=== PATIENT | female | born 1995 ===

== ENCOUNTER 2016-11-24 21:45 | Emergency (ER) | payer MEDICAID ==
[2016-11-24 22:09] VITALS: BP 113/63; PULSE 86; RESP 17; TEMP 98.3; O2SAT 100
--- NOTE | 2016-11-24 22:21 | ED PDOC ---
HPI: CCC, URI, Sore Throat Time Seen by Provider: 11/24/16 22:16 Chief Complaint (Nursing): ENT Problem Chief Complaint (Provider): cough/body aches History Per: Patient History/Exam Limitations: no limitations Have you had recent travel within the past 21 days to any of the following countries: [place], [place], [place] or [place]?: No Onset/Duration Of Symptoms: Days (3) Current Symptoms Are (Timing): Still Present Location Of Pain: Ear(s), Throat, Headache Associated Symptoms: Fever, Chills, Sore Throat, Myalgias. denies: Cough, Sputum, Neck Pain, Sinus Drainage, Nasal Congestion, Nausea, Vomiting, Diarrhea Past Medical History Reviewed: Historical Data, Nursing Documentation, Vital Signs Vital Signs: Last Vital Signs Temp 98.3 F 11/24/16 22:06 Pulse 86 11/24/16 22:06 Resp 17 11/24/16 22:06 BP 113/63 11/24/16 22:06 Pulse Ox 100 11/24/16 22:21 - Medical History PMH: No Chronic Diseases - Family History Family History: States: Unknown Family Hx - Home Medications Home Medications: Ambulatory Orders Medication Instructions Recorded Acetaminophen/Butalbital/Caf 1 tab PO TID #6 tab 10/23/16 [Fioricet] Metoclopramide [Reglan] 10 mg PO Q8 #7 tab 10/23/16 Guaifenesin [Mucinex] 600 mg PO BID #14 tab.er.12h 11/24/16 Ibuprofen [Motrin] 400 mg PO Q6 #30 tab 11/24/16 - Allergies Allergies/Adverse Reactions: Allergies Allergy/AdvReac Type Severity Reaction Status Date / Time No Known Allergies Allergy Verified 11/24/16 22:08 Curb-65 Severity Score - CURB-65 Severity Score Confusion: No Bun >19mg/dl (>7mmol/L): No Respiratory Rate greater than/equal to 30: No Systolic BP <90 or Diastolic BP less than/equal 60mmHg: No Age >64: No Curb-65 Score: 0 Percentage 30-day mortality: 0.6% Review of Systems ROS Statement: Except As Marked, All Systems Reviewed And Found Negative Constitutional: Positive for: Fever, Chills, Malaise ENT: Positive for: Throat Pain, Throat Swelling Respiratory: Negative for: Cough Physical Exam - Reviewed Nursing Documentation Reviewed: Yes Vital Signs Reviewed: Yes - Physical Exam Appears: Positive for: Non-toxic, No Acute Distress, Uncomfortable Head Exam: Positive for: ATRAUMATIC, NORMAL INSPECTION, NORMOCEPHALIC Skin: Positive for: Normal Color, Warm, DRY Eye Exam: Positive for: EOMI, Normal appearance, PERRL ENT: Positive for: Pharynx Is (red), TM Is/Are (NAD), Pharyngeal Erythema, Tonsillar Swelling. Negative for: Sinus Pain/Drainage, Tonsillar Exudate Neck: Positive for: Normal, Painless ROM Cardiovascular/Chest: Positive for: Regular Rate, Rhythm Respiratory: Positive for: CNT, Normal Breath Sounds Gastrointestinal/Abdominal: Positive for: Normal Exam, Bowel Sounds, Soft. Negative for: Tenderness Neurologic/Psych: Positive for: Alert, Oriented - ECG O2 Sat by Pulse Oximetry: 100 - Progress ED Course And Treament: rapid strep/influ A testing. Medical Decision Making Medical Decision Making: Pt with negative flu and strep pt most likely with viral syndrome-will be Rx mucinex, advised to take motrin/ tyelnol and to have plenty of fluid and rest. Disposition - Clinical Impression Clinical Impression: Upper respiratory infection - Patient ED Disposition Is Patient to be Admitted: No Counseled Patient/Family Regarding: Studies Performed, Diagnosis, Need For Followup, Rx Given - Disposition Disposition: Routine/Home Disposition Time: 23:38 Condition: STABLE Prescriptions: Ibuprofen [Motrin] 400 mg PO Q6 #30 tab Guaifenesin [Mucinex] 600 mg PO BID #14 tab.er.12h Instructions: Upper Respiratory Infection (ED), Viral Syndrome (ED) Forms: [facility] ED School/Work Excuse Print Language: QATARI
== END 2016-11-25 00:19 | disposition home or self-care (01) ==
LOC: H.ER 21:45
DX: J06.9 Acute upper respiratory infection, unspecified (principal); J02.9 Acute pharyngitis, unspecified; R51 Headache

== ENCOUNTER 2017-11-18 16:08 | Emergency (ER) | payer MEDICAID ==
[2017-11-18 16:24] VITALS: BP 110/70; PULSE 72; RESP 18; TEMP 98.4; O2SAT 100
[2017-11-18 17:21] LABS: BASO # 0.1 K/uL (0.0-0.2); EOS # 0.1 K/uL (0.0-0.7); EOS % 0.9 % (0.0-4.0); HEMOGLOBIN 14.6 g/dL (12.0-16.0); LYMPH # 1.9 K/uL (1.0-4.3); LYMPH % 21.9 % (20.0-40.0); MEAN CELL VOLUME 89.9 fl (81.0-99.0); MEAN CORPUSCULAR HEMOGLOBIN 30.3 pg (27.0-31.0); MEAN CORPUSCULAR HGB CONC 33.7 g/dL (33.0-37.0); MEAN PLATELET VOLUME 9.4 fl (7.2-11.7); MONO # 0.7 K/uL (0.0-0.8); MONO % 8.5 % (0.0-10.0); NEUT # 5.9 K/uL (1.8-7.0); NEUT % 67.7 % (50.0-75.0); RBC 4.83 Mil/uL (3.80-5.20); RED CELL DISTRIBUTION WIDTH 13.2 % (11.5-14.5); WHITE BLOOD COUNT 8.7 K/uL (4.8-10.8)
[2017-11-18 17:29] LABS: SQUAMOUS EPITHIAL 2 /hpf (0-5); URINE BILIRUBIN NEGATIVE (NEGATIVE); URINE BLOOD SMALL (NEGATIVE); URINE CLARITY CLEAR (Clear); URINE COLOR YELLOW (YELLOW); URINE GLUCOSE (UA) NEG (Normal); URINE LEUKOCYTE ESTERASE NEG Leu/uL (Negative); URINE PROTEIN NEGATIVE (NEGATIVE); URINE UROBILINOGEN 0.2-1.0 mg/dL (0.2-1.0)
--- NOTE | 2017-11-18 17:50 | ED PDOC ---
HPI: Female Pain Time Seen by Provider: 11/18/17 16:36 Chief Complaint (Nursing): Female Genitourinary History Per: Patient History/Exam Limitations: no limitations Onset/Duration Of Symptoms: Days (1) Additional Complaint(s): 22 yo F states that her menses started this AM and is c/o suprapubic pain with dysuria. Otherwise: (-) nausea / vomiting, (-) diarrhea, (-) fever, (-) melena, (-) hematochezia. Has no history of prior abdominal surgery. Past Medical History Vital Signs: Last Vital Signs Temp 98.4 F 11/18/17 16:20 Pulse 72 11/18/17 16:20 Resp 18 11/18/17 16:20 BP 110/70 11/18/17 16:20 Pulse Ox 100 11/18/17 16:20 - Medical History PMH: No Chronic Diseases - Surgical History Surgical History: No Surg Hx - Family History Family History: States: Unknown Family Hx - Home Medications Home Medications: Ambulatory Orders Medication Instructions Recorded Acetaminophen/Butalbital/Caf 1 tab PO TID #6 tab 10/23/16 [Fioricet] Metoclopramide [Reglan] 10 mg PO Q8 #7 tab 10/23/16 Guaifenesin [Mucinex] 600 mg PO BID #14 tab.er.12h 11/24/16 Ibuprofen [Motrin] 400 mg PO Q6 #30 tab 11/24/16 Naproxen 500 mg PO BID PRN #20 tablet 11/18/17 - Allergies Allergies/Adverse Reactions: Allergies Allergy/AdvReac Type Severity Reaction Status Date / Time No Known Allergies Allergy Verified 11/24/16 22:08 Review of Systems Constitutional: Negative for: Fever, Chills, Malaise Cardiovascular: Negative for: Chest Pain, Palpitations Respiratory: Negative for: Cough, Shortness of Breath Gastrointestinal: Positive for: Abdominal Pain. Negative for: Nausea, Vomiting Genitourinary Female: Positive for: Dysuria. Negative for: Frequency, Incontinence Musculoskeletal: Negative for: Neck Pain, Back Pain Skin: Negative for: Rash Physical Exam - Physical Exam Comments: GENERALIZED APPEARANCE: Patient is awake, alert, oriented x3 in no acute distress. SKIN: Warm, dry; (-) cyanosis. EYES: (-) conjunctival pallor, (-) scleral icterus. ENMT: Mucous membranes moist. NECK: (-) tenderness, (-) stiffness, (-) lymphadenopathy. CHEST AND RESPIRATORY: (-) rales, (-) rhonchi, (-) wheezes; breath sounds equal bilaterally. HEART AND CARDIOVASCULAR: (-) irregularity; (-) murmur, (-) gallop. ABDOMEN AND GI: (-) distention. Bowel sounds active; (+) mild suprapubic tenderness, (-) guarding, (-) rebound, (-) palpable masses, (-) CVA tenderness. GENITOURINARY: (-) testicular tenderness EXTREMITIES: (-) deformity, (-) edema, (+) distal pulses. NEURO AND PSYCH: Mental status as above; (-) focal findings. - Laboratory Results Result Diagrams: 11/18/17 17:14 11/18/17 17:14 - ECG O2 Sat by Pulse Oximetry: 100 Medical Decision Making Medical Decision Making: Impression : dysmenorrhea, r/o UTI Plan : -Labs -IV -toradol IV -UA -Uhcg Uhcg (-). Lab results reviewed : UA +blood, but no evidence of infection, rest of the labs are wnl. On re-evaluation, patient reports improvement of symptoms, denies any pain or nausea. On exam, patient remains AAOx3, in no acute distress. Abdomen soft, non- tender. Diagnostic results d/w the patient in great detail. Diagnosis of dysmenorrhea d/ w the patient. Based on history, exam and diagnostic results, plan will be for outpatient follow up. Patient instructed to follow-up with pmd or the clinic in 1-2 days without fail. Advised to take medication as prescribed. Return to the emergency room at any time for any new or worsening symptoms. Patient states she fully agrees with and understands discharge instructions. States that she agrees with the plan and disposition. Verbalized and repeated discharge instructions and plan. I have given the patient opportunity to ask any additional questions. Disposition - Clinical Impression Clinical Impression: Dysmenorrhea - Patient ED Disposition Is Patient to be Admitted: No Counseled Patient/Family Regarding: Studies Performed, Diagnosis, Need For Followup, Rx Given - Disposition Disposition: Routine/Home Disposition Time: 18:30 Condition: GOOD Additional Instructions: Thank you for letting us take care of you today. You were treated for dysmenorrhea. The emergency medical care you received today was directed at your acute symptoms. If you were prescribed any medication, please fill it and take as directed. It may take several days for your symptoms to resolve. Return to the Emergency Department if your symptoms worsen, do not improve, or if you have any other problems. Please contact your doctor in 2 days for re-evaluation and follow up. Bring any paperwork you were given at discharge with you along with any medications you are taking to your follow up visit. Our treatment cannot replace ongoing medical care by a primary care provider (PCP) outside of the emergency department. Thank you for allowing the [facility] team to be part of your care today. 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
[2017-11-18 17:55] LABS: ALB/GLOB RATIO 1.2 (1.0-2.1); ALT/SGPT 26 U/L (9-52); AST/SGOT 46 U/L (14-36); BLOOD UREA NITROGEN 12 mg/dl (7-17); CALCIUM 9.2 mg/dL (8.4-10.2); GFR AFRICAN-AMERICAN > 60; GFR NON-AFRICAN AMERICAN > 60
== END 2017-11-18 19:04 | disposition home or self-care (01) ==
LOC: H.ER 16:08
DX: N94.6 Dysmenorrhea, unspecified (principal)
CPT/HCPCS: 80053; 81003; 81025; 85025; 87086; 96374; 99284; J1885

== ENCOUNTER 2018-10-08 09:31 | Emergency (ER) | payer MEDICAID, OTHER ==
[2018-10-08 09:46] VITALS: BP 107/51; PULSE 71; RESP 16; TEMP 97; O2SAT 99
--- NOTE | 2018-10-08 10:29 | ED PDOC ---
Lower Extremity Pain/Injury Time Seen by Provider: 10/08/18 09:48 Chief Complaint (Nursing): Lower Extremity Problem/Injury Chief Complaint (Provider): Right foot pain History Per: Patient History/Exam Limitations: no limitations Onset/Duration Of Symptoms: Days (3) Current Symptoms Are (Timing): Still Present Additional Complaint(s): 23 year old female presents to the ED for an evaluation of right foot pain onset for 3 days which occurred after work. Patient denies any fever, injury or trauma. PMD: non [facility] Provider Past Medical History Reviewed: Historical Data, Nursing Documentation, Vital Signs Vital Signs: Last Vital Signs Temp 97.0 F L 10/08/18 09:44 Pulse 71 10/08/18 09:44 Resp 16 10/08/18 09:44 BP 107/51 L 10/08/18 09:44 Pulse Ox 99 10/08/18 09:44 - Medical History PMH: No Chronic Diseases - Family History Family History: States: Unknown Family Hx - Social History Current smoker - smoking cessation education provided: No Alcohol: None Drugs: Denies - Home Medications Home Medications: Ambulatory Orders Medication Instructions Recorded Acetaminophen/Butalbital/Caf 1 tab PO TID #6 tab 10/23/16 [Fioricet] Metoclopramide [Reglan] 10 mg PO Q8 #7 tab 10/23/16 Guaifenesin [Mucinex] 600 mg PO BID #14 tab.er.12h 11/24/16 Ibuprofen [Motrin] 400 mg PO Q6 #30 tab 11/24/16 Naproxen 500 mg PO BID PRN #20 tablet 11/18/17 Naproxen [Naprosyn] 500 mg PO Q12H #20 tab 10/08/18 - Allergies Allergies/Adverse Reactions: Allergies Allergy/AdvReac Type Severity Reaction Status Date / Time No Known Allergies Allergy Verified 10/08/18 09:49 Review of Systems ROS Statement: Except As Marked, All Systems Reviewed And Found Negative Constitutional: Negative for: Fever Musculoskeletal: Positive for: Foot Pain (right) Neurological: Negative for: Weakness, Numbness Physical Exam - Reviewed Nursing Documentation Reviewed: Yes Vital Signs Reviewed: Yes - Physical Exam Appears: Positive for: Non-toxic, No Acute Distress Head Exam: Positive for: ATRAUMATIC, NORMAL INSPECTION, NORMOCEPHALIC Skin: Positive for: Normal Color, Warm, Dry. Negative for: Rash Extremity: Positive for: Tenderness (over distal, 2nd, 3rd and 4th MTP dorsally, DP and PT: 2/4), Other (no erythema). Negative for: Deformity, Swelling Neurologic/Psych: Positive for: Alert, Oriented (x3). Negative for: Motor/Sensory Deficits - ECG O2 Sat by Pulse Oximetry: 99 (RA) Pulse Ox Interpretation: Normal Medical Decision Making Medical Decision Making: Time: 950 Impression: pain of right foot r/o sprain Plan: --foot right 3 views routine [RAD] --Reevaluation Scribe Attestation: Documented by Anthony Apple, acting as a scribe for Stefan Smart MD. Provider Scribe Attestation: All medical record entries made by the Scribe were at my direction and personally dictated by me. I have reviewed the chart and agree that the record accurately reflects my personal performance of the history, physical exam, medical decision making, and the department course for this patient. I have also personally directed, reviewed, and agree with the discharge instructions and disposition. Disposition - Clinical Impression Clinical Impression: Foot sprain - Patient ED Disposition Is Patient to be Admitted: No Counseled Patient/Family Regarding: Studies Performed, Diagnosis, Need For Followup, Rx Given - Disposition Referrals: Podiatry Clinic [Outside] Disposition: Routine/Home Disposition Time: 10:56 Condition: FAIR Prescriptions: Naproxen [Naprosyn] 500 mg PO Q12H #20 tab Instructions: Foot Sprain (DC) Forms: [employer] (Arabic) Print Language: PORTUGUESE
--- NOTE | 2018-10-08 14:19 | RAD ---
Date of service: 10/08/2018 PROCEDURE: Right Foot Radiographs. HISTORY: Pain COMPARISON: None. FINDINGS: BONES: No acute fracture or destructive bony lesion identified. JOINTS: Normal. SOFT TISSUES: Normal. OTHER FINDINGS: None. IMPRESSION: Unremarkable right foot radiographs.
== END 2018-10-08 11:13 | disposition home or self-care (01) ==
LOC: H.ER 09:31
DX: S93.601A Unspecified sprain of right foot, initial encounter (principal); X58.XXXA Exposure to other specified factors, initial encounter